=== PATIENT | male | born 1995 | race Hispanic/Latino ===

== ENCOUNTER 2018-02-17 10:00 | Outpatient (RCR) | payer OTHER | END 2018-03-03 | LOC: PT 10:00 | PROVIDERS: ATTEND Specialist | DX: S83.511D Sprain of anterior cruciate ligament of right knee, subsequent encounter (principal); M25.561 Pain in right knee; M25.461 Effusion, right knee; M62.81 Muscle weakness (generalized) ==

== ENCOUNTER → 2018-03-15 | Day surgery (SDC) | payer OTHER ==
[~2018-03-15] MED LIST: CEFAZOLIN SOD 2 GM/D5W 50ML 50 ML IV ONE; DEXAMETHASONE SOD PHOS INJ 4 MG/ML VIAL IV ONE; FENTANYL CITRATE/PF 100MCG/2 ML INJ ONE; ISOFLURANE INHAL SOLN 250 ML BTL INH ONE; KETOROLAC TROMETHAMINE 30 MG/ML VIAL IV ONE; LIDOCAINE 2% /EPINEPHRINE 20 ML SDV INJ ONE; LIDOCAINE HCL 2% LOCAL INJ 5 ML SDV VIAL INJ ONE; MEPERIDINE HCL INJ 50 MG/ML INJ ONE; MIDAZOLAM HCL 2 MG/2 ML VIAL ONE; MORPHINE SULFATE INJ 10 MG/ML ONE; ONDANSETRON HCL INJ 2 MG/ML VIAL IV ONE; PROPOFOL IV EMULSION 10 MG/ML 20 ML VIAL IV ONE; ROPIVACAINE 0.5% 5 MG/ML 30 ML SDV ONE; SEVOFLURANE INHAL SOLN 250 ML PEN BTL ONE
[2018-03-15 18:30] VITALS: BP 140/80
--- NOTE | 2018-03-16 19:36 | Operative Report ---
DATE OF PROCEDURE: March 15, 2018 PREOPERATIVE DIAGNOSIS: Right knee anterior cruciate ligament tear. POSTOPERATIVE DIAGNOSIS: Right knee anterior cruciate ligament tear. OPERATIVE PROCEDURE PERFORMED: The patient underwent right knee 4-strand autograft hamstring-anterior cruciate ligament reconstruction. PICKLE MAKER: None. ANESTHESIA: General endotracheal intubation anesthesia. IV FLUIDS: Per anesthesia record. DESCRIPTION OF THE PATIENT'S OPERATIVE PROCEDURE: Mr. Quiroz was taken to the operating room placed in supine position on operating table. Following induction of general anesthesia as well as endotracheal intubation, the patient's right lower extremity was examined under anesthesia. He was found to have a mild effusion within the knee joint. He had positive Judith's test and a positive anterior drawer test involving the right leg. A mild pivot shift. The patient's lower extremity was prepped and draped in standard surgical fashion. The case was begun by creating a 2-portal technique. The scope was placed in the knee joint atraumatically. Examination of the patellofemoral joint demonstrated no evidence of chondromalacia. There were no loose bodies in the medial or lateral gutter or suprapatellar pouch. The scope was advanced to the medial compartment. The medial compartment demonstrated no significant pathology. The scope was placed in the intercondylar notch and the anterior cruciate ligament was found to be torn. The scope was then advanced to the lateral compartment and there was no pathology. The scope was returned to the intercondylar condyle and the remnant of the torn anterior cruciate ligament was resected. A notchplasty was performed at this time. The knee was inflated with sterile normal saline. Attention was turned to harvesting the graft. A small incision was created roughly adjacent to the tibial tubercle extending distally for approximately 4 cm. This incision was carried through the skin only. Blunt dissection was used to deepen the incision. The superior edge of the sartorius muscle was easily identified. A combination of both sharp and blunt dissection was used to elevate the sartorius and underlying gracilis and semitendinosus tendons from their insertion site into the tibia. Care was taken to protect the medial collateral ligament this time. The sartorius was inverted and the gracilis and semitendinosus tendons were harvested without difficulty. They were passed to the back table. On evaluation of the tendon, it was found they were proper quality and caliber. The tendons were then prepared for replantation in the knee as a 4-strand hamstring graft. They were tensioned using the Graftmaster device. Attention was then turned to the knee joint. The scope was placed within the knee and the tibial tunnel guide was positioned within the knee joint. Care was taken to position this properly to allow for proper placement for the tibial guide pin. Pin was then inserted into the knee and position of the pin was checked using arthroscopy and found to be appropriate. The tibial tunnel was then drilled. A #5 [id number] guide was then placed in the 10 o'clock position and a guide pin was inserted through the femur. Measurements were taken as the guide pin passed through the cortex of the femur. The pin was then passed through the skin and stabilized. The reamer was then used to create a femoral tunnel. The dilators were then used to dilate the canals at appropriate size. The graft was then passed within the knee joint and the sutures were passed through the skin of the anterolateral thigh. The graft was then slowly brought within the knee joint and the EndoButton was passed through the femur. The EndoButton was seeded in the graft. Attention was placed in the graft to confirm the seeding of the EndoButton. The graft was then drawn into the knee carefully and into the femoral tunnel. The knee was then cycled through range of motion and again the graft was tensioned. A tension was pulled through the graft and the graft held its place within the femoral canal. The knee was again cycled through range of motion and an interference screw was inserted in the tibia transfixing the graft in its position. A probe was then placed within the knee joint and the graft was probed and found to be appropriately tensioned. The knee was placed through range of motion. There was no impingement. The knee was deflated of its sterile normal saline. All portal sites were closed. The graft site was closed in a multilayer fashion taking care to repair the sartorius to its normal insertion site. Sterile dressings were applied to the wounds and the patient was provided a [place] brace, awakened and taken to the postanesthesia care unit in stable condition. Job#: [id number] MARCIA
== END | disposition home or self-care (01) ==
LOC: OR 09:55
PROVIDERS: ATTEND Specialist
DX: M23.611 Other spontaneous disruption of anterior cruciate ligament of right knee (principal); S83.421A Sprain of lateral collateral ligament of right knee, initial encounter; X58.XXXA Exposure to other specified factors, initial encounter
CPT/HCPCS: 29888; J1100; J1885; J2001 ×2; J2175; J2250; J2270; J2405; J2795

== ENCOUNTER 2018-05-01 13:00 | Outpatient (RCR) | payer OTHER | END 2018-05-03 | LOC: PT 13:00 | PROVIDERS: ATTEND Specialist | DX: M23.611 Other spontaneous disruption of anterior cruciate ligament of right knee (principal); M25.561 Pain in right knee; M25.661 Stiffness of right knee, not elsewhere classified; R26.2 Difficulty in walking, not elsewhere classified; M62.81 Muscle weakness (generalized) | CPT/HCPCS: 97010 ×5; 97110 ×11; 97112; 97140 ×2; 97161; G0283 ×6 ==

== ENCOUNTER 2018-05-26 10:00 | Outpatient (RCR) | payer OTHER | END 2018-06-02 | LOC: PT 10:00 | PROVIDERS: ATTEND Specialist | DX: M23.611 Other spontaneous disruption of anterior cruciate ligament of right knee (principal); M25.561 Pain in right knee; M25.661 Stiffness of right knee, not elsewhere classified; R26.2 Difficulty in walking, not elsewhere classified; M62.81 Muscle weakness (generalized) ==